=== PATIENT | female | born 1940 | race Two or more races ===

== ENCOUNTER 2025-04-25 15:00 | Inpatient (IN) | payer OTHER ==
[~2025-04-25] VITALS: Ht 160 cm; Wt 71.7 kg
[2025-04-25] MEDS ORDERED: TOPROL XL25 M1 (15:44)
[2025-04-25] MEDS ORDERED: ARBLI10 MG/1 ML (15:45)
[2025-04-25] MEDS ORDERED: LIPITOR40 M1 (15:48)
--- NOTE | 2025-04-25 15:49 | NUR ---
PTE ALERTA Y ORIENTADA X3 REIFERE DEBILIDAD. SE MIDEN S/V Y SE UBICA.
[2025-04-25] MEDS ORDERED: SODIUM CHLORIDE 0.45 % 1,000 ML IV STA (16:28)
[2025-04-25 17:27] LABS: BASO % 0.2 % (0.1-1.2); EOS # 0.00 (0.04-0.54); EOS % 0.0 % (0.7-7.0); LYMPH # 1.03 (1.18-3.74); LYMPH % 5.4 % (19.3-53.1); MEAN PLATELET VOLUME 12.30 fl (9.4-12.4); MONO # 0.95 (0.24-0.82); MONO % 5.0 % (4.7-12.5); NEUT # 16.74 (1.56-6.13); NEUT % 88.7 % (34.0-71.1); RED CELL DISTRIBUTION WIDTH 16.3 % (11.6-14.4)
[2025-04-25 18:31] LABS: COVID-19 AG NEGATIVE (NEGATIVE)
[2025-04-25 18:34] LABS: URINE APPEARANCE Cloudy; URINE BILIRRUBIN Negative (NEGATIVE); URINE BLOOD Negative; URINE COLOR Yellow; URINE GLUCOSE Negative (NEGATIVE); URINE KETONE Trace (NEGATIVE); URINE LEUKOCYTE Moderate; URINE NITRATE Negative; URINE UROBILINOGEN 1.0 E.U./dl
[2025-04-25 18:39] LABS: URINE CAST 5.24 uL (0.0-1.40); URINE EPITHELIAL CELLS 134.4 uL (0.0-38.8); URINE RBC 16.2 uL (0.0-20.8); URINE WBC 248.5 uL (0.0-23.2)
[2025-04-25 18:48] LABS: ALT/SGPT 14.0 U/L (12-78); AST/SGOT 23.0 U/L (15-37); BILIRUBIN TOTAL 0.77 mg/dL (0.3-1.2); BUN CREA RATIO 21.0 (7.0-25.0); CREATININE SERUM 1.32 mg/dL (0.55-1.02); GFR 38.53; GLOBULINA 5.0 G/DL (2.4-3.5); GLUCOSE FASTING 156.0 mg/dL (65-100); OSMOLALITY SERUM 288.0 MOSM/KG (275-295)
[2025-04-25 19:01] LABS: URINE PROTEIN 100 (NEGATIVE)
[2025-04-25] MEDS ORDERED: 0.9 % SODIUM CHLORIDE 1,000 ML IV STA (19:31)
[2025-04-25] MEDS ORDERED: POTASSIUM BICARBONATE/CIT AC 25 MEQ TABLET.EFF PO STA (19:33)
[2025-04-25] MEDS ORDERED: TICAGRELOR 90 MG TABLET PO SCH (20:47)
[2025-04-25] MEDS ORDERED: METOPROLOL SUCCINATE 25 MG TAB.SR.24H PO SCH (20:48)
[2025-04-25] MEDS ORDERED: ATORVASTATIN CALCIUM 40 MG TABLET PO SCH (20:48)
[2025-04-25] MEDS ORDERED: LOSARTAN POTASSIUM 50 MG TABLET PO SCH (20:49)
[2025-04-25] MEDS ORDERED: ENOXAPARIN SODIUM 40 MG/0.4 ML SYRINGE SUBCUTANEO SCH (20:58)
[2025-04-25] MEDS ORDERED: NITROGLYCERIN IN 5 % DEXTROSE 250 ML IV SCH (21:00)
[2025-04-25] MEDS ORDERED: ENOXAPARIN SODIUM 80 MG/0.8 ML SYRINGE SUBCUTANEO ONE (22:24)
[2025-04-25] MEDS ORDERED: NITROGLYCERIN IN 5 % DEXTROSE 50 MG/250 ML BOTTLE IV ONE (22:25)
[2025-04-25 22:52] LABS: ALT/SGPT 15.0 U/L (12-78); AST/SGOT 21.0 U/L (15-37); BILIRUBIN TOTAL 0.66 mg/dL (0.3-1.2); BUN CREA RATIO 22.0 (7.0-25.0); CREATININE SERUM 1.32 mg/dL (0.55-1.02); GFR 38.53; GLOBULINA 4.9 G/DL (2.4-3.5); GLUCOSE FASTING 137.0 mg/dL (65-100); OSMOLALITY SERUM 286.0 MOSM/KG (275-295)
[2025-04-25 23:11] VITALS: BP 136/63
[2025-04-25 23:47] VITALS: BP 141/59; O2SAT 100
[2025-04-26] VITALS (14 sets, daily range): BP systolic 111–180; BP diastolic 58–85; O2SAT 97–100
[2025-04-26 07:44] LABS: INR 1.24
[2025-04-26] MEDS ORDERED: CHLORHEXIDINE GLUCONATE 120 ML BOTTLE TOP ONE (08:30)
[2025-04-26] MEDS ORDERED: CEFTRIAXONE SODIUM 2,000 MG in 0.9 % SODIUM CHLORIDE 100 ML IV SCH (09:00)
[2025-04-26] MEDS ORDERED: ENOXAPARIN SODIUM 80 MG/0.8 ML SYRINGE SUBCUTANEO SCH (09:00)
[2025-04-26] MEDS ORDERED: MEROPENEM 500 MG/VIAL VIAL IV SCH (13:20)
[2025-04-27] VITALS (22 sets, daily range): BP systolic 109–162; BP diastolic 58–88; O2SAT 100
[2025-04-27 07:53] LABS: BASO % 0.3 % (0.1-1.2); EOS # 0.40 (0.04-0.54); EOS % 4.0 % (0.7-7.0); LYMPH # 1.56 (1.18-3.74); LYMPH % 15.4 % (19.3-53.1); MEAN PLATELET VOLUME 11.00 fl (9.4-12.4); MONO # 0.87 (0.24-0.82); MONO % 8.6 % (4.7-12.5); NEUT # 7.24 (1.56-6.13); NEUT % 71.5 % (34.0-71.1); RED CELL DISTRIBUTION WIDTH 16.0 % (11.6-14.4)
[2025-04-27 08:37] LABS: ALT/SGPT 16.0 U/L (12-78); AST/SGOT 25.0 U/L (15-37); BILIRUBIN TOTAL 0.48 mg/dL (0.3-1.2); BUN CREA RATIO 25.0 (7.0-25.0); CREATININE SERUM 0.71 mg/dL (0.55-1.02); GFR 78.81; GLOBULINA 4.2 G/DL (2.4-3.5); GLUCOSE FASTING 109.0 mg/dL (65-100); OSMOLALITY SERUM 287.0 MOSM/KG (275-295)
[2025-04-28] VITALS (10 sets, daily range): BP systolic 117–160; BP diastolic 56–83; O2SAT 99–100
[2025-04-28] MEDS ORDERED: ISOSORBIDE MONONITRATE 30 MG TABLET PO SCH (09:00)
[2025-04-28 11:14] LABS: URINE APPEARANCE Clear; URINE BACTERIA 84.6 uL (0.0-1933); URINE BILIRRUBIN Negative (NEGATIVE); URINE BLOOD Negative; URINE COLOR Yellow; URINE EPITHELIAL CELLS 108.5 uL (0.0-38.8); URINE GLUCOSE Negative (NEGATIVE); URINE KETONE Trace (NEGATIVE); URINE LEUKOCYTE Moderate; URINE NITRATE Negative; URINE PROTEIN 30 (NEGATIVE); URINE RBC 16.1 uL (0.0-20.8); URINE UROBILINOGEN 1.0 E.U./dl; URINE WBC 83.7 uL (0.0-23.2)
[2025-04-28 12:00] LABS: URINE CAST 0.99 uL (0.0-1.40)
[2025-04-28] MEDS ORDERED: AMINO ACIDS/PROTEIN HYDROLYS 30 ML BLIST.PACK PO SCH (17:00)
[2025-04-29 00:49] VITALS: BP 133/78; O2SAT 99
[2025-04-29 06:41] LABS: BASO % 0.5 % (0.1-1.2); EOS # 0.31 (0.04-0.54); EOS % 4.7 % (0.7-7.0); LYMPH # 1.71 (1.18-3.74); LYMPH % 25.7 % (19.3-53.1); MEAN PLATELET VOLUME 10.70 fl (9.4-12.4); MONO # 0.88 (0.24-0.82); NEUT # 3.71 (1.56-6.13); NEUT % 55.7 % (34.0-71.1); RED CELL DISTRIBUTION WIDTH 15.8 % (11.6-14.4)
[2025-04-29 07:04] LABS: MONO % 13.2 % (4.7-12.5)
[2025-04-29 07:44] LABS: ALT/SGPT 19.0 U/L (12-78); AST/SGOT 23.0 U/L (15-37); BILIRUBIN TOTAL 0.36 mg/dL (0.3-1.2); BUN CREA RATIO 19.0 (7.0-25.0); CREATININE SERUM 0.74 mg/dL (0.55-1.02); GFR 75.13; GLOBULINA 3.9 G/DL (2.4-3.5); GLUCOSE FASTING 108.0 mg/dL (65-100); OSMOLALITY SERUM 290.0 MOSM/KG (275-295)
[2025-04-29 09:00] VITALS: BP 134/76; O2SAT 99
[2025-04-29] MEDS ORDERED: MEROPENEM 500 MG/VIAL VIAL IV SCH (12:00)
[2025-04-29 18:04] VITALS: BP 138/70; O2SAT 100
[2025-04-30 03:04] VITALS: BP 153/75; O2SAT 97
[2025-04-30 09:16] VITALS: BP 158/77; O2SAT 99
[2025-04-30 17:59] VITALS: BP 151/73
[2025-04-30] MEDS ORDERED: ACETAMINOPHEN 500 MG GEL..CAP PO PRN (18:00)
[2025-05-01 03:09] VITALS: BP 466/73; O2SAT 97
[2025-05-01 09:19] VITALS: BP 159/81; O2SAT 99
[2025-05-01 21:55] VITALS: BP 165/78
[2025-05-02 02:59] VITALS: BP 145/72; O2SAT 100
[2025-05-02 10:11] VITALS: BP 147/78; O2SAT 99
== END 2025-05-02 15:03 | disposition home or self-care (01) | DRG 683 ==
LOC: ER 15:01 → ICU-2 21:52 → MEDJ 21:52 → ICU 04-26 17:47 → MEDJ 04-28 18:46
PROVIDERS: General Practice; Internal Medicine Infectious Disease; ADMIT Internal Medicine; ATTEND Internal Medicine
PROC: BT43ZZZ Ultrasonography of Bilateral Kidneys (ICD-10-PCS; principal; 2025-04-25)
PROC: B246ZZZ Ultrasonography of Right and Left Heart (ICD-10-PCS; 2025-04-25)
PROC: 4A12X45 Monitoring of Cardiac Electrical Activity, Ambulatory, External Approach (ICD-10-PCS; 2025-04-25)
PROC: BB24ZZZ Computerized Tomography (CT Scan) of Bilateral Lungs (ICD-10-PCS; 2025-04-25)
DX: N17.9 Acute kidney failure, unspecified (principal); N39.0 Urinary tract infection, site not specified; I95.9 Hypotension, unspecified; I73.9 Peripheral vascular disease, unspecified; R53.1 Weakness; I12.9 Hypertensive chronic kidney disease with stage 1 through stage 4 chronic kidney disease, or unspecified chronic kidney disease; N18.9 Chronic kidney disease, unspecified; Z95.0 Presence of cardiac pacemaker